=== PATIENT | male | born 1980 | race Caucasian/White ===

== ENCOUNTER 2020-08-28 16:11 | Emergency (ER) | payer OTHER, SELFPAY ==
[2020-08-28 16:15] VITALS: PULSE 0; O2SAT 98
--- NOTE | 2020-08-28 16:36 | ED.HEATRA ---
HPI - Head Injury General Chief complaint: Trauma Stated complaint: TRAUMA CODE Time Seen by Provider: 08/28/20 16:24 Source: EMS Mode of arrival: EMS History of Present Illness HPI Narrative: Patient is a 39-year-old male brought in by EMS due to trauma. Patient fell forearm approximately 60 feet of height. According to EMS patient was in asystole when they arrived. EMS states that the cranium was working at snap and he fell approximately 60 feet. Patient was intubated at the scene and continuous cardiopulmonary resuscitation was initiated. According to EMS they worked on him for approximately 40 minutes without ROSC. They did state that they saw junctional rhythm on the monitor at 1 time and that is why they brought him in instead of declaring him at the scene. Review of Systems Review of Systems: ROS unobtainable: Yes unobtainable due to medical condition PMFSH Comments Past medical history: Unknown Social history: Unknown Exam Narrative: Exam Narrative: Patient unresponsive on arrival Depressed skull fracture, otorrhea, rhinorrhea Pupils fixed and dilated No spontaneous respiration No pulse Course Course Emergency Course: After continuous cardiopulmonary resuscitation, per ACLS protocol, total time since the incident approximately 50 minutes, patient remained in asystole and at 1615 time of was called. Spoke to the brother on the phone and advised him to come to the emergency room. Discharge Plan Discharge Clinical Impression: Severe head trauma, Multiple injuries due to trauma Patient Disposition: Condition: Time of Disposition: 16:43
--- NOTE | 2020-08-28 16:36 | PC.NURSE ---
1607 EMS arrived to ED, cpr was continued, ACLS protocols continued, pt. intubated by EMS, mechanical ventilations given via BVM at 100% O2. Pt. has been receiving CPR and ACLS protocol for approx 40mins in the field, EMS obtained ROSC once and lost the pulse in the field. 1610 pulse check, asystole, no pulse, continued CPR, epi given 1612 pulse check, asystole, no pulse, continued CPR 1613 epi given 1614 pulse check, no pulse, pt. is in asystole, CPR continued 1615 CPR stopped, no pulse, pt. is in asystole, EDP called the code, time of .
== END 2020-08-28 19:05 | disposition expired ==
PROVIDERS: Emergency Provider Emergency Medicine
DX: S02.91XA Unspecified fracture of skull, initial encounter for closed fracture (principal); T14.90XA Injury, unspecified, initial encounter; I46.8 Cardiac arrest due to other underlying condition; W17.89XA Other fall from one level to another, initial encounter
CPT/HCPCS: 92950; 99285; J0171